=== PATIENT | male | born 1960 | race Caucasian/White ===

== ENCOUNTER → 2022-07-20 | Outpatient (CLI) | payer SELFPAY ==
--- NOTE | 2022-07-20 09:41 | RAD_ITS ---
STUDY: X-RAY - LUMBAR SPINE REASON FOR EXAM: Male, 61 years old. Low back pain. TECHNIQUE: 5 view(s) of the lumbar spine were obtained. COMPARISON: None FINDINGS: Osteopenia. Normal lumbar lordosis. There is no substantial scoliosis. There is a normal alignment of the vertebrae. Diffuse lower thoracic and lumbosacral facet sclerosis. Intervertebral disc space narrowing diffusely most marked in the lower thoracic spine. Vascular calcification. RAD/L/S Spine Min 4 Views IMPRESSION: Osteopenia with diffuse lower thoracic and lumbosacral spondylosis, most marked in the lower thoracic spine. Electronically Signed: Madi Roberts MD at 15:53 EDT ,
== END | disposition home or self-care (01) ==
LOC: RAD 09:37
PROVIDERS: Referring Provider Chiropractor Orthopedic; Visit Provider Chiropractor Orthopedic
DX: M99.03 Segmental and somatic dysfunction of lumbar region (principal); M99.04 Segmental and somatic dysfunction of sacral region
CPT/HCPCS: 72110

== ENCOUNTER → 2024-05-23 | Outpatient (CLI) | payer SELFPAY ==
--- NOTE | 2024-05-23 13:47 | RAD_ITS ---
PROCEDURE: HIP, UNI W/ PELVIS 2-3 VIEWS 05/23/2024 REASON FOR EXAM: R HIP SPRAIN/ STRAIN TECHNIQUE: AP pelvis and two-view right hip, 3 total images COMPARISON: None available FINDINGS: No fracture or dislocation. Lateral right hip [id number] joint space narrowing with acetabular sclerosis, marginal osteophyte formation, lateral femoral head buttressing and spurring. Small sclerotic focus intertrochanteric right femur possible bone island. Symmetric appearing SI joints and pubic symphysis appear within limits. Lower lumbar spondylosis. RAD/HIP, UNI W/ Pelvis 2-3 Views IMPRESSION: Moderate lateral right hip osteoarthrosis as above. Reading Location: [id number]
== END | disposition home or self-care (01) ==
PROVIDERS: Referring Provider Chiropractor Orthopedic; Visit Provider Chiropractor Orthopedic
DX: S73.101A Unspecified sprain of right hip, initial encounter (principal)
CPT/HCPCS: 73502